=== PATIENT | female | born 1990 | race Caucasian/White ===

== ENCOUNTER 2016-12-21 00:33 | Emergency (ER) | payer SELFPAY ==
[~2016-12-21] VITALS: Ht 160 cm; Wt 34.0 kg
[2016-12-21] MEDS ORDERED: LORAZEPAM 2MG/ML CPJ IV ONE (01:00)
[2016-12-21 01:11] LABS: BASOPHILS % 0.5 % (0.0-2.0); EOSINOPHILS % 2.7 % (0.0-5.0); HEMATOCRIT. 38.9 % (36.0-48.0); HEMOGLOBIN. 13.2 g/dL (12.0-16.0); LYMPHOCYTES % 31.7 % (20.0-50.0); MEAN CORPUSCULAR HEMOGLOBIN 29.9 pg (28.0-32.0); MEAN CORPUSCULAR VOLUME 87.9 fL (81.0-99.0); MEAN PLATELET VOLUME 7.8 fl (7.4-10.4); NEUTROPHILS % 59.1 % (40.0-76.0); PLATELET 232 x1000/uL (130-400); RED BLOOD CELL COUNT 4.42 mill/uL (4.2-5.4); RED CELL DISTRIBUTION WIDTH 13.6 % (11.6-14.6); WHITE BLOOD COUNT 9.1 x1000/uL (4.5-11.0)
[2016-12-21 01:20] LABS: CHLORIDE 108 mEq/L (98-107); INDEX HEMOLYSI 1 (1-3); INDEX ICTERIC 1 (1-4); INDEX LIPEMIC 1 (1-3)
[2016-12-21 01:21] LABS: HCG SCREEN NEGATIVE
[2016-12-21 01:28] LABS: ALANINE AMINOTRANSFERASE 20 IU/L (13-61); ALBUMIN 4.2 g/dL (3.4-5.0); ANION GAP 13; CALCIUM 8.7 mg/dL (8.5-10.1); CARBON DIOXIDE 24 mEq/L (21-32); UREA NITROGEN BLOOD 13 mg/dL (7-21); eGFR > 60 mL/min (>60)
[2016-12-21 04:40] VITALS: BP 144/74
== END 2016-12-21 04:39 | disposition home or self-care (01) ==
LOC: ER 00:34
DX: F41.0 Panic disorder [episodic paroxysmal anxiety] (principal); R51 Headache; R25.2 Cramp and spasm
CPT/HCPCS: 36415; 80053; 84703; 85025; 96374; 99284; J2060; Z7610